=== PATIENT | female | born 1960 | race Caucasian/White ===

== ENCOUNTER 2021-11-01 00:40 | Day surgery (SDC) | payer BC, SELFPAY ==
[2021-10-15 09:46] VITALS: BMI 30.2
[2021-11-01 10:07] VITALS: BP 139/77; PULSE 120; RESP 16; TEMP 36.4; O2SAT 100
[2021-11-01 10:08] VITALS: BMI 29.8
--- NOTE | 2021-11-01 10:15 | ECG_ITS ---
Measurements Intervals [place] Rate: 97 P: 59 VT: 131 QRS: -1 QRSD: 84 T: 59 QT: 345 QTc: 439 Interpretive Statements SINUS RHYTHM NORMAL ECG NO PREVIOUS ECG AVAILABLE FOR COMPARISON Electronically Signed On 11-01-2021 16:23:52 CDT by Binu Hudson M.D.
[2021-11-01] MEDS: LACTATED RINGERS 1,000 ML 150 ML IV CONT (10:24)
--- NOTE | 2021-11-01 10:33 | WPDANESEPPF ---
Anes - Initial Pre Proc Eval Procedure: Operation Date: 11/01/21 11:30 Proposed Procedures p Screening Colonoscopy - Lencho Mathew MD Date/Time: 11/01/21 10:33 Surgeon: Lencho Mathew MD Pre Op Diagnosis: hx of colon polyps Patient Data Age: 61 Gender: F Height: 1.57 m Weight: 74 kg Last Vital Signs Temp 36.4 C L 11/01/21 10:07 Pulse 120 H 11/01/21 10:07 Resp 16 11/01/21 10:07 BP 139/77 11/01/21 10:07 Pulse Ox 100 11/01/21 10:07 Allergies Allergy/AdvReac Type Severity Reaction Status Date / Time Penicillins Allergy Intermediate Rash Verified 11/01/21 10:06 Home Medications Medication Instructions Recorded Confirmed Type calcium 1 gummy PO DAILY 10/15/21 10/15/21 History fluticasone propionate [Flonase 2 spray INTRANASAL DAILY 10/15/21 10/15/21 History Allergy Relief] loratadine [Claritin] 10 mg PO DAILY 10/15/21 10/15/21 History Patient hx anesthesia problems: none Family hx anesthesia problems: none Results Review: All pre-operative results and documents have been reviewed as part of the pre-operative evaluation. [facility] Past Medical History Medical History (Updated 11/01/21 @ 10:34 by Madhu Silva MD) Overweight Tachycardia Social History Social History Smoking status: Never smoker Alcohol intake: current Drinks per week: 3 Alcohol use details: VODKA/WATER Substance use: never Substance use type: does not use Living arrangements: with family Spiritual care concerns: No Anes - Eval Final PreProcedure Day of Procedure 11/01/21 10:33 Patient weight: normal Heart: tachycardia (130's in preop EKG normal) Lungs: clear to auscultation Airway: Mallampati scale class II Neurological: alert and oriented Last oral intake: >/= 8 hours ASA classification: II Emergent: no Anesthetic plan: proceed Anesthesia type and monitoring: general GIVS and standard monitoring Results Review: All pre-operative results and documents have been reviewed as part of the pre-operative evaluation. Informed Consent: The patient's anesthetic plan and its attendant risks and benefits were discussed with the patient/family/POA. Questions were solicited and answers provided to the satisfaction of the patient/family/POA.
--- NOTE | 2021-11-01 10:50 | WPDGICN ---
Assessment and Plan Assessment and plan (1) Colon cancer screening: Code(s): Z12.11 - Encounter for screening for malignant neoplasm of colon Status: Acute Assessment and Plan: Colonoscopy with possible biopsy or polypectomy or cautery or injection of substances. GI Consult Note Consult date/time: 11/01/21 10:50 HPI: Lashay Johnson is a 61 year old female Referred for colon cancer screening. She had a colonoscopy about 9 years ago. She believes that she had a polyp or 2 removed at that time. Review of Systems Review of Systems: All systems reviewed & are unremarkable except as noted in HPI and below PMFSH Past Medical History Medical History Overweight Tachycardia Social History Social History Smoking status: Never smoker Alcohol intake: current Drinks per week: 3 Alcohol use details: VODKA/WATER Substance use: never Substance use type: does not use Living arrangements: with family Spiritual care concerns: No Meds Home Medications and Allergies Home Medications Medication Instructions Recorded Confirmed Type calcium 1 gummy PO DAILY 10/15/21 10/15/21 History fluticasone propionate [Flonase 2 spray INTRANASAL DAILY 10/15/21 10/15/21 History Allergy Relief] loratadine [Claritin] 10 mg PO DAILY 10/15/21 10/15/21 History Allergies Allergy/AdvReac Type Severity Reaction Status Date / Time Penicillins Allergy Intermediate Rash Verified 11/01/21 10:06 Vital Signs Vital Signs - 24 hr 11/01/21 10:07 Temperature 36.4 C L Pulse Rate 120 H Respiratory Rate 16 Blood Pressure 139/77 Pulse Oximetry 100 Exam Resp: Auscultation: clear to auscultation bilaterally Cardio: Rate: regular rate Rhythm: regular rhythm GI: GI Palp: Yes Soft to palpation and No Tenderness to palpation present (GI)
[2021-11-01 11:13] VITALS: BP 144/81; PULSE 86; RESP 19; O2SAT 100
[2021-11-01 11:23] VITALS: BP 148/80; PULSE 84; RESP 15; O2SAT 100
[2021-11-01 11:33] VITALS: BP 149/79; PULSE 78; RESP 20; O2SAT 100
== END 2021-11-01 11:43 | disposition home or self-care (01) ==
PROVIDERS: PCP Internal Medicine; Visit Provider Internal Medicine Gastroenterology
PROC: 0DJD8ZZ Inspection of Lower Intestinal Tract, Via Natural or Artificial Opening Endoscopic (ICD-10-PCS; CPT 45378; principal; 2021-11-01 11:30)
DX: Z12.11 Encounter for screening for malignant neoplasm of colon (principal); D12.5 Benign neoplasm of sigmoid colon; R00.0 Tachycardia, unspecified
CPT/HCPCS: 45385; 88305; 93005; J2704; J7120

== ENCOUNTER 2022-11-20 08:03 | Emergency (ER) | payer OTHER, SELFPAY ==
[2022-11-20] VITALS (21 sets, daily range): BP systolic 143–158; BP diastolic 61–83; PULSE 56–97; RESP 0–20; TEMP 36.5; O2SAT 97–100
--- NOTE | ~2022-11-20 | CT_ITS ---
EXAMINATION: CT brain wo con DATE: 11/20/2022 09:45 INDICATION: Dizziness TECHNIQUE: Computed tomography (CT) of the head was performed without intravenous contrast. The dose- length product was 605.33 mGy-cm. Automated exposure control and iterative reconstruction technique w ere employed. COMPARISON: None FINDINGS: Brain parenchymal volume is normal for age. There are bilateral basal ganglia calcification s. Normal bone-white differentiation. Basilar cisterns are patent. There is intracranial atherosclero sis. There are scattered mild periventricular and subcortical white matter changes, most likely relat ed to small vessel ischemic disease (microangiopathy). No acute intracranial hemorrhage, infarction, mass or mass effect. Paranasal sinuses and mastoids are pneumatized. IMPRESSION: 1. No acute intracranial abnormality. Reviewed, dictated and finalized at location A.
--- NOTE | 2022-11-20 08:22 | ECG_ITS ---
Measurements Intervals [place] Rate: 59 P: 44 MS: 134 QRS: 6 QRSD: 92 T: 41 QT: 390 QTc: 389 Interpretive Statements SINUS BRADYCARDIA BASELINE ARTIFACT- I, II, III, AVR, AVL, AVF BORDERLINE ECG COMPARED TO ECG 11/01/2021 10:21:52 SINUS BRADYCARDIA NOW PRESENT Electronically Signed On 11-20-2022 13:27:43 CDT by Fan Bailey D.O.
[2022-11-20 08:33] LABS: Basophils Percent Auto 0.2 % (0.2-1.2); Hematocrit 42.3 % (37.0-47.0); Hemoglobin 13.8 g/dL (12.0-15.0); Immature Granulocyte Absolute 0.09 K/mm3 (0.00-0.031); Immature Granulocyte Percent A 0.9 % (0-0.5); Lymphocytes Absolute Auto 1.77 K/mm3 (0.9-3.2); Lymphocytes Percent Auto 18.5 % (18.3-44.2); Mean Corpuscular HGB Conc 32.6 g/dl (32-36); Mean Corpuscular Hemoglobin 33.1 pg (26-34); Mean Corpuscular Volume 101.4 fl (80-100); Mean Platelet Volume 10.3 fl (7.4-10.4); Monocytes Absolute Auto 0.8 K/mm3 (0.1-0.6); Monocytes Percent Auto 8.8 % (2.6-8.5); Neutrophils Absolute Auto 6.9 K/mm3 (1.3-6.7); Neutrophils Percent Auto 71.6 % (45.5-73.1); Platelet Count Result 237 k/mm3 (150-375); Red Blood Count 4.17 M/mm3 (4.2-5.4); Red Cell Distribution Width 12.5 % (11.5-14.5); White Blood Count 9.6 K/mm3 (4.5-10.0)
[2022-11-20 08:38] LABS: Alanine Aminotransferase 21 U/L (6-35); Albumin Level 4.5 g/dL (3.5-5.1); Alkaline Phosphatase 106 U/L (38-126); Anion Gap 5 mmol/L (8-16); Aspartate Amino Transferase 27 U/L (14-36); Bilirubin,Total 0.5 mg/dL (0.2-1.3); Blood Urea Nitrogen 17 mg/dL (7-17); Carbon Dioxide 32 mmol/L (22-30); Chloride 103 mmol/L (98-107); Estimated CRCL calculation 92 ml/min; Estimated Glomerular Filt Rate > 60; Glucose 101 mg/dL (65-110); Sodium 140 mmol/L (137-145)
--- NOTE | 2022-11-20 08:50 | ED.DIZZY ---
HPI - Dizziness General Chief Complaint: Dizziness Stated Complaint: DIZZINESS X4D Time Seen by Provider: 11/20/22 08:12 History of Present Illness HPI Narrative: 62-year-old female presenting to the ED for evaluation of dizziness been ongoing for the last 4 days. Patient was seen in urgent care and diagnosed with a sinus infection. Patient was started on antibiotics meclizine and prednisone. Patient states she is still having symptoms. Patient states symptoms are worsened when she sits up and turns to the right. Patient reports symptoms are improved when she sits still. Related Data Home Medications Medication Instructions Recorded Confirmed calcium 1 gummy PO DAILY 10/15/21 10/15/21 fluticasone propionate 50 2 spray intranasal DAILY 10/15/21 10/15/21 mcg/actuation nasal spray,suspension (Flonase Allergy Relief) loratadine 10 mg tablet (Claritin) 10 mg PO DAILY 10/15/21 10/15/21 Allergies Allergy/AdvReac Type Severity Reaction Status Date / Time Penicillins Allergy Intermediate Rash Verified 11/20/22 08:22 Review of Systems Review of Systems: All systems reviewed & are unremarkable except as noted in HPI and below PMFSH Past Medical History Medical History Overweight Tachycardia Social History Social History Smoking status: Never smoker Alcohol intake: current Drinks per week: 3 Alcohol use details: VODKA/WATER Substance use: never Substance use type: does not use Living arrangements: with family Spiritual care concerns: No Exam Narrative: APPEARANCE: Well appearing, no pain, no distress, well-nourished. HEAD: normocephalic, atraumatic. EYES: PERRLA/EOMI, conjunctivae clear. NOSE: Normal no drainage EARS:TMS clear with good light reflex. THROAT: Pharynx clear, no exudate. NECK: Supple. No adenopathy, no masses. RESPIRATORY: Airway patent, respirations nonlabored. Clear to auscultation bilaterally, no rales, rhonchi, wheezing. CARDIOVASCULAR: Regular rate and rhythm without murmurs rubs or gallops. ABDOMINAL: Soft, nontender, nondistended, normal bowel sounds MUSCULOSKELETAL: Moves all extremities. Strength/ROM intact, No edema, No calf tenderness. NEURO: Alert. Cranial nerves II through XII intact. Sustained nystagmus to the right SKIN: Warm, dry. Normal Color Course Course Emergency Course: 62-year-old female presented the ED for evaluation of vertiginous symptoms that have been persistent for the past 4 days. Patient did have follow-up with her primary care physician was started on antibiotics steroids and on meclizine as needed. Patient is afebrile with no leukocytosis. Patient's CMP is similar to her baseline. Head CT showed no acute intra abnormality. While patient has been taking prednisone and meclizine antibiotics with no improvement patient did feel some improvement with the Valium that was given in the ED. Patient and family were updated on the results of the work-up. Patient was treated with the Luba maneuver x2 with no significant improvement. Patient and family were updated on how to attempt these maneuvers at home. Patient reports he already does have some discharge instructions that were provided regarding doing the Luba maneuver. Patient was also provided outpatient follow-up with neurology. All questions concerns were addressed. Vital Signs Vital signs: Vital Signs Temperature 97.7 F 11/20/22 08:09 Pulse Rate 78 11/20/22 08:09 Respiratory Rate 16 11/20/22 08:09 Blood Pressure 157/61 H 11/20/22 08:09 Pulse Oximetry 100 11/20/22 08:09 Oxygen Delivery Room Air 11/20/22 08:09 Temperature 97.7 F 11/20/22 08:09 Pulse Rate 56 L 11/20/22 11:00 Respiratory Rate 16 11/20/22 11:00 Blood Pressure 155/73 H 11/20/22 10:46 Pulse Oximetry 100 11/20/22 11:00 Oxygen Delivery Room Air 11/20/22 08:09
[2022-11-20] MEDS: diazePAM (*CRX) 5 MG TABLET 2.5 MG PO (09:05)
== END 2022-11-20 11:15 | disposition home or self-care (01) ==
PROVIDERS: Emergency Provider Emergency Medicine; PCP Internal Medicine
DX: H81.10 Benign paroxysmal vertigo, unspecified ear (principal); E66.3 Overweight; Z68.29 Body mass index [BMI] 29.0-29.9, adult; R00.1 Bradycardia, unspecified
CPT/HCPCS: 36415; 70450; 80053; 85025; 93005; 99284; A9270

== ENCOUNTER 2025-05-07 15:56 | Outpatient (CLI) | payer OTHER, SELFPAY ==
--- NOTE | ~2025-05-07 | MM_ITS ---
EXAMINATION: MM screening [facility] HISTORY: Screening TECHNIQUE: Craniocaudal and mediolateral oblique 3-D tomosynthesis images were obtained and synthetic 2-D images were generated. CAD analysis was submitted and interpreted. COMPARISON: Comparison to multiple prior studies sequentially, with oldest reviewed study dated 05/21/2015. BREAST PARENCHYMAL COMPOSITION: Not dense: There are scattered areas of fibroglandular density. FINDINGS: There is no evidence of suspicious mass, calcification, or architectural distortion to suggest malignancy in either breast. There has been no suspicious interval change. IMPRESSION: 1. No mammographic evidence of malignancy. 2. Recommend routine screening mammography in one year. BI-RADS Category 1: Negative Reviewed, dictated and finalized at location B.
== END 2025-05-07 15:57 | disposition home or self-care (01) ==
LOC: MICIMG 15:56
PROVIDERS: PCP Internal Medicine; Visit Provider Internal Medicine
DX: Z12.31 Encounter for screening mammogram for malignant neoplasm of breast (principal)
CPT/HCPCS: 77063; 77067